=== PATIENT | male | born 1980 | race Caucasian/White ===

== ENCOUNTER → 2018-05-08 | Outpatient (REF) ==
[~2018-05-08] MED LIST: ANUCORT-HC25 MG RE; AUGMENTIN875TAB PO; BACTRIM DS1 TAB OR; CIPROFLOXACN500 MG PO; IBUPROFEN400 MG PO; NAPROSYN500 MG PO; PERCOCET 5/325M1 TAB OR; PREVACID30 M2 PO; PRILOSEC40 MG PO; RANITIDINE ACID75 MG; ULTRAM50 MG OR; ZANTAC150 MG OR; ZOFRAN ODT4 MG PO
== END | disposition home or self-care (01) | DRG 556 ==
LOC: LAB 10:59
PROVIDERS: ATTEND Family Medicine
DX: M25.50 Pain in unspecified joint (principal)

== ENCOUNTER → 2018-05-09 | Outpatient (REF) | END | disposition home or self-care (01) | DRG 556 | LOC: LABSPEC 16:33 | PROVIDERS: ATTEND Family Medicine | DX: M25.50 Pain in unspecified joint (principal) ==

== ENCOUNTER 2019-11-02 00:02 | Emergency (ER) | payer BC ==
[~2019-11-02] VITALS: Ht 177.8 cm; Wt 91.0 kg
[2019-11-02] MEDS ORDERED: NEXIUM40 M1 PO (00:29)
[2019-11-02 02:34] VITALS: BP 149/72
== END 2019-11-02 02:45 | disposition home or self-care (01) | DRG 864 ==
LOC: ED 00:02
DX: R50.9 Fever, unspecified (principal); Z20.828 Contact with and (suspected) exposure to other viral communicable diseases